=== PATIENT | male | born 1980 | race Caucasian/White ===

== ENCOUNTER 2022-11-10 11:37 | Emergency (ER) | payer OTHER, SELFPAY ==
[2022-11-10 11:58] VITALS: BP 139/98; PULSE 57; RESP 16; TEMP 36.4; O2SAT 99; BMI 30.2
--- NOTE | 2022-11-10 12:24 | ED.GENADUL1 ---
HPI - General Adult General Chief complaint: Abdominal Pain Stated complaint: abdominal pain Time Seen by Provider: 11/10/22 12:23 Source: patient Mode of arrival: walk-in History of Present Illness HPI narrative: Patient is a 42-year-old male who is presenting to the ER complaint of left lower quadrant discomfort, nausea. Patient does have a history of diverticulitis. Patient has had diverticulitis twice previously.Patient is only had one CAT scan in the past. Patient works in the railroad. Patient has had no heavy lifting, twisting or turning recently. Patient has no fever or chills. is at bedside. Patient has had diarrhea since Wednesday, patient does not believe he is constipated. He did have diarrhea last week as well, he took one Imodium last week. No chest pain or shortness of breath. Patient has no fever or chills. No difficulty urinating. Patient with history kidney stones. Patient had left over Cipro and Flagyl from his last diverticulitis, he's been taking that since Wednesday with no relief. The 1st 2 times patient had diverticulitis, he take the medication for for 5 days, infection would improve and he did not finish the antibiotics either time. Patient has no other acute complaints at this time . All systems are negative except as noted/marked. All systems reviewed and otherwise negative. . Nurses note and vital signs reviewed and patient is not hypoxic. General: The patient appears well and in no apparent distress. Patient is resting comfortably on cart. Patient is not toxic, lethargic, or listless Skin: Warm, dry, no pallor noted. There is no rash noted. No petechiae, purpura. Head: Normocephalic, atraumatic Eye: Normal conjunctiva, no drainage, EOMI. PERRL Ears, Nose, Mouth, and Throat: oral mucosa is moist. Nares patent. Mouth without vesicles. Cardiovascular: Regular Rate and Rhythm, no murmur, gallop, rub Respiratory: Patient is in no distress, no accessory muscle use, lungs are clear to auscultation, no wheezing, rales or rhonchi Back: non-tender, no CVA tenderness bilaterally to percussion. No CT LS midline pain GI: soft, obese, . Moderate left lower quadrant tenderness to palpation, no bilateral flank pain, no bilateral CVA tenderness. No periumbilical tenderness to palpation. No right upper or right lower quadrant tenderness palpation, no peritoneal signs, otherwise no tenderness to palpation, no masses appreciated. No rebound, guarding, or rigidity noted. No flank pain bilateral, No distention Musculoskeletal: Patient has full range of motion of all of the extremities, no motor, sensory, or focal neurological deficits Neurological: A&O x3, normal speech Psychiatric: Cooperative Related Data Home Medications Medication Instructions Recorded Confirmed alprazolam 1 mg tablet 1 mg PO DAILY PRN anxiety 11/10/22 11/10/22 atorvastatin 40 mg tablet 40 mg PO DAILY 11/10/22 11/10/22 ezetimibe 10 mg tablet 10 mg PO DAILY 11/10/22 11/10/22 losartan 100 mg tablet 100 mg PO DAILY 11/10/22 11/10/22 metoprolol tartrate 25 mg tablet 12.5 mg PO BID 11/10/22 11/10/22 omeprazole 40 mg capsule,delayed 40 mg PO DAILY 11/10/22 11/10/22 release Previous Rx's Medication Instructions Recorded ciprofloxacin HCl 500 mg tablet 500 mg PO Q12H 10 days #10 tabs 11/10/22 dicyclomine 20 mg tablet 20 mg PO TID PRN abdominal pain #7 11/10/22 tabs hydrocodone 5 mg-acetaminophen 325 1 tab PO Q4H PRN pain #10 tabs 11/10/22 mg tablet metronidazole 500 mg tablet 500 mg PO TID 10 days #15 tabs 11/10/22 ondansetron 4 mg disintegrating 4 mg PO Q4H PRN nausea and 11/10/22 tablet vomiting 3 days #6 tabs Allergies Allergy/AdvReac Type Severity Reaction Status Date / Time No Known Drug Allergies Allergy Verified 11/10/22 11:58 [facility] Medical History (Updated 11/10/22 @ 15:30 by Avinash Tijerina MD) Exam Constitutional Vital Signs, click to edit/add: Last Vital Signs Temp 97.5 F L 11/10/22 11:58 Pulse 57 L 11/10/22 11:58 Resp 16 11/10/22 11:58 BP 139/98 H 11/10/22 11:58 Pulse Ox 99 11/10/22 11:58 O2 Del Method Room Air 11/10/22 11:58 Course Vital Signs Vital signs: Vital Signs Temperature 97.5 F L 11/10/22 11:58 Pulse Rate 57 L 11/10/22 11:58 Respiratory Rate 16 11/10/22 11:58 Blood Pressure 139/98 H 11/10/22 11:58 Pulse Oximetry 99 11/10/22 11:58 Oxygen Delivery Method Room Air 11/10/22 11:58 Temperature 97.5 F L 11/10/22 11:58 Pulse Rate 57 L 11/10/22 11:58 Respiratory Rate 16 11/10/22 11:58 Blood Pressure 139/98 H 11/10/22 11:58 Pulse Oximetry 99 11/10/22 11:58 Oxygen Delivery Method Room Air 11/10/22 11:58 Medical Decision Making MDM Narrative Medical decision making narrative: Patient initially had IV laboratory testing, labwork was hemolyzed, there are delay in patient's labs coming back. Patient has only had one CT scan and pelvis previously. Patient will have CT abdomen and pelvis done because patient states this feels different than it did the last 2 times it diverticulitis. He states the pain is more waiting to the umbilicus, last 2 times it was only in the left lower quadrant. Patient states he's had diarrhea for the past 3 days, education on constipation that usually includes diarrhea was discussed at bedside. Patient does not believe is constipated. Patient CT shows acute non-complicated diverticulitis. Patient has multiple small kidney stones 1?2 millimeters to bilateral kidneys, education was done with patient and at bedside and possible future kidney stones. Patient has already taken 3 days of Cipro and Flagyl at home from a leftover prescription. Patient has 2 additional days of Cipro and Flagyl at home. Patient was given another 5 days of Cipro and Flagyl to finished a ten-day course. Patient was given Bentyl, [place] and Zofran to help as well. Patient will follow-up with Dr. Rojas for repeat colonoscopies in the future and additional follow-up for diverticulitis care. Patient has Already had a colonoscopy 3-4 years ago. Patient will be on clear liquids for the next 2-3 days. Patient's labs shows no significant findings Lab Data Lab results reviewed: Yes I reviewed the patient's lab results Labs: Lab Results 11/10/22 11/10/22 11/10/22 Range/Units 12:10 12:15 13:01 WBC 8.0 (4.0-11.0) 10^3/uL RBC 4.29 L (4.70-6.10) 10^6/uL Hgb 13.0 L (14.0-18.0) g/dL Hct 38.8 L (42.0-54.0) % MCV 90.4 (80.0-94.0) fL MCH 30.3 (25.9-34.0) pg MCHC 33.5 (29.9-35.2) g/dL RDW 12.8 (11.0-15.0) % Plt Count 201 (150-450) 10^3/uL MPV 9.4 L (9.5-13.5) fL Neut % (Auto) 66.6 (43.0-75.0) % Lymph % (Auto) 23.8 (20.5-60.0) % [place] % (Auto) 7.1 (1.7-12.0) % Eos % (Auto) 1.9 (0.9-7.0) % Baso % (Auto) 0.4 (0.2-2.0) % Neut # (Auto) 5.3 (1.4-6.5) 10^3/uL Lymph # (Auto) 1.9 (1.2-3.8) 10^3/uL [place] # (Auto) 0.6 (0.3-0.8) 10^3/uL Eos # (Auto) 0.2 (0.0-0.7) 10^3/uL Baso # (Auto) 0.0 (0.0-0.1) 10^3/uL Abs Immat Gran (auto) 0.02 (0.00-0.03) 10^3/uL Imm/Tot Granulo (auto) 0.2 (0.0-0.5) % Sodium 139 (136-145) mmol/L Potassium 4.4 (3.5-5.1) mmol/L Chloride 104 (98-107) mmol/L Carbon Dioxide 27.4 (21.0-32.0) mmol/L Anion Gap 12.0 BUN 8.0 (7.0-18.0) mg/dL Creatinine 0.86 (0.70-1.30) mg/dL Est GFR ( Amer) >60 (>=60) Est GFR (Non-Af Amer) >60 (>=60) BUN/Creatinine Ratio 9.3 Glucose 95 (74-106) mg/dL Lactate 0.7 (0.4-2.0) mmol/L Calcium 8.9 (8.5-10.1) mg/dL Total Bilirubin 0.6 (0.2-1.0) mg/dL AST 19 (15-37) U/L ALT 38 (16-63) U/L Alkaline Phosphatase 55 (46-116) U/L Total Protein 7.3 (6.4-8.2) g/dL Albumin 3.6 (3.4-5.0) g/dL Globulin 3.7 g/dL Albumin/Globulin Ratio 1.0 Lipase 82.0 (73.0-393.0) U/L Urine Color Lt. yellow (YELLOW) Urine Clarity Clear (CLEAR) Urine pH 5.0 (5.0-9.0) Ur Specific Superior <=1.005 A (1.005-1.025) Urine Protein Negative (NEG/TRACE) mg/dL Urine Glucose (UA) Negative (NEGATIVE) mg/dL Urine Ketones Negative (NEGATIVE) mg/dL Urine Occult Blood Negative (NEGATIVE) Urine Nitrite Negative (NEGATIVE) Urine Bilirubin Negative (NEGATIVE) Urine Urobilinogen 0.2 (0.2-1.0) EU/dL Ur Leukocyte Esterase Negative (NEGATIVE) Discharge Plan Discharge Chief Complaint: Abdominal Pain Clinical Impression: Diverticulitis, Calculus of kidney, Abdominal pain Patient Disposition: Home, Self-Care Condition: Fair Prescriptions / Home Meds: New hydrocodone-acetaminophen 5-325 mg tablet 1 tab PO Q4H PRN (Reason: pain) Qty: 10 0RF dicyclomine 20 mg tablet 20 mg PO TID PRN (Reason: abdominal pain) Qty: 7 0RF ondansetron 4 mg tablet,disintegrating 4 mg PO Q4H PRN (Reason: nausea and vomiting) 3 Days Qty: 6 0RF metronidazole 500 mg tablet 500 mg PO TID 10 Days Qty: 15 0RF ciprofloxacin HCl 500 mg tablet 500 mg PO Q12H 10 Days Qty: 10 0RF No Action alprazolam 1 mg tablet 1 mg PO DAILY PRN (Reason: anxiety) atorvastatin 40 mg tablet 40 mg PO DAILY ezetimibe 10 mg tablet 10 mg PO DAILY losartan 100 mg tablet 100 mg PO DAILY metoprolol tartrate 25 mg tablet 12.5 mg PO BID omeprazole 40 mg capsule,delayed release(DR/EC) 40 mg PO DAILY Instructions: Diverticulitis (ED), Kidney Stones (ED), Abdominal Pain (ED) Additional Instructions: Education on kidney stones was done at bedside for educational purposes only. Kidney stones is not causing her pain today as discussed at bedside. Finish the 2 additional days of antibiotics that you have at home. Additional 5 days of Cipro and Flagyl have been given to as well. Use pain medication as needed. He may use Tylenol and anti-inflammatories and alternate every 4 hours as needed for pain. Do not take the pain pill with Tylenol, he could be taking too much Tylenol together. Clear liquids for the next 2-3 days. Work note has been given. Stand Alone Forms: Work/School Release, Portal Instructions Referrals: Shaikh Xavier MD [Primary Care Provider] - 1 week
[2022-11-10] MEDS: ONDANSETRON PF 4 MG/2 ML VIAL IV (12:39)
[2022-11-10] MEDS: 0.9 % SODIUM CHLORIDE 1,000 ML 1000 ML IV (12:39)
[2022-11-10 13:04] LABS: Bilirubin Urine NEGATIVE (NEGATIVE); Blood Urine NEGATIVE (NEGATIVE); Clarity Urine CLEAR (CLEAR); Color Urine LT. YELLOW (YELLOW); Glucose Urine UA NEGATIVE (NEGATIVE); Ketones Urine NEGATIVE (NEGATIVE); Leukocyte Esterase Urine NEGATIVE (NEGATIVE); Nitrite Urine NEGATIVE (NEGATIVE); Protein Urine NEGATIVE (NEG/TRACE); Specific Gravity Urine <=1.005 (1.005-1.025); Urobilinogen Urine 0.2 EU/dL (0.2-1.0)
[2022-11-10 13:06] LABS: Urine Microscopic Indicated NO
[2022-11-10 13:07] LABS: Basophils Percent Auto 0.4 % (0.2-2.0); Eosinophils Absolute Auto 0.2 10^3/uL (0.0-0.7); Eosinophils Percent Auto 1.9 % (0.9-7.0); Hematocrit 38.8 % (42.0-54.0); Immature Granulocytes Abs Auto 0.02 10^3/uL (0.00-0.03); Immature Granulocytes Pct Auto 0.2 % (0.0-0.5); Lymphocytes Absolute Auto 1.9 10^3/uL (1.2-3.8); Lymphocytes Percent Auto 23.8 % (20.5-60.0); Mean Corpuscular HGB Conc 33.5 g/dL (29.9-35.2); Mean Corpuscular Hemoglobin 30.3 pg (25.9-34.0); Mean Corpuscular Volume 90.4 fL (80.0-94.0); Mean Platelet Volume 9.4 fL (9.5-13.5); Monocytes Absolute Auto 0.6 10^3/uL (0.3-0.8); Monocytes Percent Auto 7.1 % (1.7-12.0); Neutrophils Absolute Auto 5.3 10^3/uL (1.4-6.5); Neutrophils Percent Auto 66.6 % (43.0-75.0); Platelet Count 201 10^3/uL (150-450); Red Blood Count 4.29 10^6/uL (4.70-6.10); Red Cell Distribution Width 12.8 % (11.0-15.0)
[2022-11-10 13:24] LABS: Lactate/Lactic Acid 0.7 mmol/L (0.4-2.0)
--- NOTE | 2022-11-10 13:30 | CT_ITS ---
[place] [id number] Patient Name: REA AGUAYO MRN: [facility]:[id number] date: 1980 Sex: M Assigned Patient Location: ER Current Patient Location: Accession/Order Number: [id number] Exam Date: 11/10/2022 13:52 Report Date: 11/10/2022 14:27 At the request of: HANNA LYONS Procedure: CT abdomen pelvis w con EXAM: CT abdomen pelvis w con; [id number] REASON FOR EXAM: llq pain TECHNIQUE: Helical CT images of the abdomen and pelvis were obtained after the administration of IV contrast. Multiplanar reformats were generated at the scanner. Dose reduction technique used: Automated exposure control and/or adjustment of the mA and/or kV according to patient size and/or use of iterative reconstruction technique. COMPARISON: CT abdomen/pelvis 12/05/2015 and 11/24/2015. FINDINGS: Visualized Chest: No pleural effusion or any significant pulmonary findings. Abdomen: Liver: Benign liver hemangioma in the dome of the right lobe of liver measuring 1.8 cm (series 3 image 19). Gallbladder: No calcified gallstones. No acute inflammatory changes. Bile Ducts: No significant biliary ductal dilatation. Pancreas: No mass, ductal dilatation, or inflammatory changes. Spleen: No splenomegaly or focal lesion. Adrenals: No nodules. Kidneys: -There are 5 nonobstructing 1-2 mm stones in the right kidney and 3 nonobstructing 1-2 mm stones in the left kidney. -No hydronephrosis. -No mass. Vascular: No aortic aneurysm. Lymph Nodes: No adenopathy. Abdominal Wall: No hernia or mass. Pelvis: No mass or adenopathy. Bowel/Peritoneal Cavity/Mesentery: -Moderate colonic diverticulosis with associated focal moderate pericolonic fat stranding and trace free fluid at the junction of the descending and sigmoid colon in the left lower quadrant (series 3 image 94). No gross perforation or evidence of abscess. -No bowel obstruction or significant ileus. -No acute inflammatory changes. -No free air or free fluid. Musculoskeletal: No acute fracture or suspicious osseous lesion. CT/CT abdomen pelvis w con IMPRESSION: 1. Mild acute uncomplicated diverticulitis at the junction of the descending and sigmoid colon. 2. Multiple small bilateral nonobstructing kidney stones. Electronically authenticated by: CASEY SAWYER Date: 11/10/2022 14:27
[2022-11-10 13:31] LABS: Alanine Aminotransferase 38 U/L (16-63); Albumin Level 3.6 g/dL (3.4-5.0); Alkaline Phosphatase 55 U/L (46-116); Aspartate Amino Transferase 19 U/L (15-37); BUN Creatinine Ratio 9.3; Bilirubin Total 0.6 mg/dL (0.2-1.0); Calcium 8.9 mg/dL (8.5-10.1); Carbon Dioxide 27.4 mmol/L (21.0-32.0); Chloride 104 mmol/L (98-107); Estimated GFR (African America >60 (>=60); Estimated GFR (Non-African Ame >60 (>=60); Globulin 3.7 g/dL; Glucose 95 mg/dL (74-106); Potassium 4.4 mmol/L (3.5-5.1); Sodium 139 mmol/L (136-145); Total Protein 7.3 g/dL (6.4-8.2)
[2022-11-10] MEDS: KETOROLAC TROMETHAMINE 30 MG/ML VIAL 15 MG IVP (14:00)
[2022-11-10] MEDS: LACTATED RINGER'S SOLUTION 1,000 ML 150 ML IV (14:07)
[2022-11-10] MEDS: MORPHINE SULFATE 4 MG/ML VIAL IV (14:52)
== END 2022-11-10 15:38 | disposition home or self-care (01) ==
PROVIDERS: Emergency Provider Emergency Medicine; PCP Internal Medicine
DX: K57.32 Diverticulitis of large intestine without perforation or abscess without bleeding (principal); N20.0 Calculus of kidney; R10.9 Unspecified abdominal pain; Z87.442 Personal history of urinary calculi; Z79.899 Other long term (current) drug therapy
CPT/HCPCS: 36415; 74177; 80053; 81003; 83605; 83690; 85025; 96361; 96374; 96375; 99285; Q9967

== ENCOUNTER 2024-10-05 14:27 | Outpatient (OUT) | payer OTHER, SELFPAY ==
--- OUTSIDE RECORDS SUMMARY | 2024-07-28 08:49 | XMS_ITS ---
Author Organization [facility] in [place] Address [address] [place] [address] Care Team Providers Care Continuous Miner Operator Helper Name Role Phone Reese Zhang Primary Care Provider [phone] REASON FOR VISIT lab results Encounters Encounter Location Date Provider Diagnosis [place] [address] [place] [address] 07/28/2024 Reese Zhang Plan Of Treatment No Information Progress Notes * Anita ELIZABETHOB:[birth year] (44 yo M)Acc No.[id number]:07/28/2024 Patient: Phil QUINTANAWILFRIDWalkerMani :1980 A ge:43 Y S ex:Male Address:[address] [place] [address], [phone] * true * Date: Generated for Printi ng/Faxing/eTransmitting on: 0 10/05/2024 02:30 PM EDT
--- OUTSIDE RECORDS SUMMARY | 2024-10-02 08:03 | XMS_ITS ---
Author Organization [facility] [place] Address [address] [place] [address] Care Team Providers Care Director Of Consulting Services Name Role Phone Reese Zhang Primary Care Provider [phone] REASON FOR VISIT sick Medications Medication SIG (Take, Route, Fr equency, Duration) Notes Start Date End Date Status Ondansetron HCl 4 MG 1 tablet Orally q6 hours prn nausea for 10 days 10/02/2024 Active Encounters Encounter Location Date Provider Diagnosis [place] [address] [place] [address] 10/02/2024 Reese Zhang Plan Of Treatment Medication Medication Name Sig Start Date Stop Date Notes Ondansetron HCl 4 MG 1 tablet Orally q6 hours prn nausea for 10 days 10/02/2024 Progress Notes * [place] AGUAYOsDOB:[birth year] (44 yo M)Acc No.[id number]:10/02/2024 Patient: Mani BARNARD :1980 A ge:44 Y S ex:Male Address:[address] [place] [address], [phone] * Refills Start Ondansetron HCl Tablet, 4 MG, Orally, 30, 1 tablet, q6 hours prn nausea, 10 days, Refills=0 * true * Date: Generated for Printi ng/Faxing/eTransmitting on: 0 10/05/2024 02:30 PM EDT
--- OUTSIDE RECORDS SUMMARY | 2024-10-04 11:41 | XMS_ITS ---
Author Organization [facility] [place] Address [address] [place] [address] Care Team Providers Care Vehicle Fare Collector Name Role Phone Zhang Reese Primary Care Provider REASON FOR VISIT still sick Encounters Encounter Location Date Provider Diagnosis [place] [address] [place] [address] 10/04/2024 Reese Zhang Unspecified abdomina l pain R10.9 Assessments Encounter Date Diagnosis (ICD Code) Assessment Notes Treatment Notes Treatment Clinical Notes Section Notes 10/04/2024 Unspecified abdominal pain (ICD-10 - R10.9) Plan Of Treatment Pending Test Test Name Order Date CT Abdomen and Pelvis w/contrast * 10/04 Progress Notes * [place] AGUAYOsDOB:[birth year] (44 yo M)Acc No.[id number]:10/04/2024 Patient: Mani BARNARD :1980 A ge:44 Y S ex:Male Address:[address] [place] [address], [phone] Subjective: * Chief Complaints: * S till sick * Medical History: * Surgical History: * Hospitalization/Major Diagno stic Procedure: * Medications: Objective: * Vitals: * Physical Examination: Assessment: * Assessment: 1. U nspecified abdominal pain - R10.9 (Primary) Plan: * Treatment: * Procedure Codes: * true * Date: Generated for Printi ng/Faayog/Galindo on: 0 10/05/2024 02:30 PM EDT
--- OUTSIDE RECORDS SUMMARY | 2024-10-05 14:30 | XMS_ITS | Encounter Summary ---
Author Organization [facility] Address [address] [place] [address] Care Team Providers Care Yard Specialist Name Role Phone Mikie Becerril MD Primary Care Provider [phone] Jazz Khan NP Unavailable [phone] Unallocated, Noms Provider Primary Care Provi gabriel Reason for Visit * Reason Comments Med Refill Encounter Details Date Type Department Care Team (Late st Contact Info) Description 08/20/2024 Refill [facility] [address] [place] [address] Shanel Ferguson NP [address] [place] [address] Gastroesophageal reflux disease without esophagitis; Primary hypertension ; Other hyperlipidemia Social History Tobacco Use Types Packs/Day Years Used Date Smoking Tobacco: Former Cigarettes Passive Smoke Exposure: Past Smokeless Tobacco: Former Chew Alcohol Use Standard Drinks/Week Comments Never 0 (1 standard drink = 0.6 oz pur e alcohol) Sex and Gender Information Value Date Recorded Sex Assigned at Not on file Legal Sex Male 11:51 PM EDT Gender Identity Not on file Sexual Orientation Not on file documented as of this encounter Miscellaneous Notes * Telephone Encounter - Shanel Ferguson NP - 08/20/2024 10:12 AM EDT Please contact the pt, he needs an appt with me [place] documented in this encounter Plan of Treatment Upcoming Encounters Date Type Department Care Team (Late st Contact Info) Description 01/29/2025 2:30 PM EDT Office Visit [facility] [address] [place] [address] George Guerrero MD [address] [place] [address] documented as of this encounter Visit Diagnoses Diagnosis Gastroesophageal reflux disease without esophagitis Esophageal reflux Primary hypertension Unspecified essential hypertension Other hyperlipidemia documented in this encounter Care Teams Yard Specialist Relationship Specialty Start Date End Date Mikie Becerril MD [address] [place] [place] [id number] PCP - General Family Medicine 12/30/23 08/20/24 Unallocated, Nato Frederick MD [facility] [place] [address] PCP - General Family Medicine 08/21/24 Jazz Khan NP [address] [place] [address] Nurse Practitioner Family Medicine 12/30/23 08/20/24 documented as of this encounter
--- OUTSIDE RECORDS SUMMARY | 2024-10-05 14:31 | XMS_ITS | Clinical Summary ---
Author Organization [facility] Address [address] [place] [address] Care Team Providers Care Metal Refiner Name Role Phone Unavailable Primary Care Provider Unavailabl e Social History Tobacco Use Types Packs/Day Years Used Date Smoking Tobacco: Never Assessed [place] Safety & Environment Answer Date Rec orded Fear of Current or Ex-Partner Not on file Emotionally Abused Not on file 06/03/2023 Physically Abused Not on file 06/03/2023 Sexually Abused Not on file 06/03/2023 Physically or Sexually Abused Not on file Sex and Gender Information Value Date Recorded Sex Assigned at Not on file Legal Sex Male 12:41 AM EDT Gender Identity Not on file Sexual Orientation Not on file Plan of Treatment Not on file
--- OUTSIDE RECORDS SUMMARY | 2024-10-05 14:31 | XMS_ITS | Clinical Summary ---
Author Organization [facility] Address [address] [place] [address] Care Team Providers Care Landscape Photographer Name Role Phone Unallocated, Noms Provider Primary Care Provi gabriel Allergies No known active allergies Medications ALPRAZolam (Xanax) 1 MG tabletIndications:A nxiety Take 1 tablet (1 mg) by mouth 3 (three) times a day as needed for anxiety 90 tablet 5 Active testosterone cypionate (Depo-Testosterone) 200 MG/ML injectionIndication s:Secondary male hypogonadism Inject 1 mL (200 mg) into the shoulder, thigh, or buttocks every 14 (fourteen) days 6 mL 1 5 01/20/20 25 Active omeprazole (PriLOSEC) [address] capsuleIndications: Gastroesophageal reflux disease without esophagitis Take 1 capsule (40 mg) by mouth in the morning. Take before meals. Do not crush or chew. 90 capsule 5 11/19/19 25 Active metoprolol tartrate (Lopressor) 25 MG tabletIndications:P rimary hypertension Take 0.5 tablets (12.5 mg) by mouth every 12 (twelve) hours 90 tablet 5 11/19/19 25 Active losartan (Cozaar) 100 MG tabletIndications:P rimary hypertension Take 1 tablet (100 mg) by mouth Daily 90 tablet 5 11/19/19 25 Active atorvastatin (Lipitor) 40 MG tabletIndications:O ther hyperlipidemia Take 1 tablet (40 mg) by mouth at bedtime 90 tablet 5 11/19/19 25 Active ezetimibe (Zetia) 10 MG tabletIndications:O ther hyperlipidemia Take 1 tablet (10 mg) by mouth in the morning. 90 tablet 5 11/19/19 25 Active Active Problems Problem Noted Date Diagnosed Date Fatigue 02/15/2024 Post-viral cough syndrome 06/01/2023 Assessment & Plan (06/01/2023 10:59 PM EST): Patient came here for mild throat discomfort, nasal congestion ever since he recovered from URTI about a month ago. Patient was worried that he has a white patch over her hard plate. No white patch/discoloration noted. Mild oropharyngeal hyperemia noted that is likely from chronic rhinitis. Recommended conservative measures. Use a humidifier at night. Avoid sudden/severe changes in temperature. Reach out to office if any concerns or questions. Primary hypertension 03/30/2023 Assessment & Plan (02/15/2024 4:28 PM EST): Currently taking Losartan 100mg Metoprolol 25mg Checks BP at home; Averages are 130's/80's Denies orthostatic changes, dizziness, cough, shortness of breath, swelling in extremities. Continue current regimen. Given BP log, advised pt to record BP and bring log back with them to next visit. Assessment & Plan (03/30/2023 9:44 AM EST): BP well controlled. On average less than 130/90. Tolerating Anti hypertensive w/o adverse effects. Denies lightheadedness, dizziness, syncope, presyncope. Patient encouraged to continue with home BP monitoring and call office if he experiences orthostatic symptoms or persistently elevated BP. On Losartan and Lopressor. C/w same. Check Labs to ensure electrolytes are not affected by Losartan. Other hyperlipidemia 03/30/2023 Assessment & Plan (02/15/2024 4:28 PM EST): Currently taking Atorvastatin 40mg Denies any myalgias. Continue current regimen. Assessment & Plan (03/30/2023 9:47 AM EST): He was started on Zetia on top of Lipitor for poorly controlled HLD Check Lipid panel, Liver enzymes. Anxiety 03/30/2023 Assessment & Plan (03/30/2023 9:46 AM EST): Patient uses Ativan as needed. He uses it once daily at night. He tried SSRI previously and did not like the way it made him feel. He reports well controlled anxiety on current regimen. I called in Ativan to be used as needed TID so that patient does not have to go to [facility] his medications every month from the pharmacy but patient was made aware and he verbalized understanding that he will use Ativan once nightly as before. Gastroesophageal reflux disease without esophagi tis 03/30/2023 Assessment & Plan (03/30/2023 9:44 AM EST): Uses Prilosec. Works well for him. C/w same. No red flags. H/O diverticulitis of colon 03/30/2023 Assessment & Plan (03/30/2023 9:46 AM EST): Recurrent episodes, usually easily manageable with bowel rest and PO abx. Patient has not had a recent flare up. He had called office for an antibiotic for it but ended up not using them since his abdominal pain resolved on its own within a day Wellness examination 03/30/2023 Assessment & Plan (02/15/2024 4:20 PM EST): I have reviewed Ht/Wt/BMI, I have reviewed recommended vaccines for patient's age, as well as all recommended screenings I have reviewed available care everywhere notes as well. I have recommended eating a balanced diet, as well as activity as chronic conditions allow It is recommended that the patient have a yearly eye exam, as well as twice a year dental exams Fu in this office for wellness on a yearly basis Diet: Eat three meals per day. Breakfast, lunch, and dinner. Avoid snacking. Avoid eating after 5/6 pm. Daily protein GOAL 35% of your intake; 30g per meal. Daily calorie GOAL 1,800-2,000 per day. Consider tracking your food intake on MyFtinessPal or LoseIt Water: Increase water intake; GOAL 64-80oz of water per day. Exercise: Increase activity. GOAL 30 minutes, 5 days per week. START SLOW. Start with 5 minutes, 5 days per week. Then increase to 10 days, 5 days per week. Continue to increase until you reach the goal. Increase steps; GOAL 10,000 steps per day. Be sure to get adequate sleep; GOAL 6-8 hours of sleep per night. Assessment & Plan (03/30/2023 9:48 AM EST): Patient here for annual wellness. No active complaints to offer. Reviewed medical, surgical and social hx. Reviewed medication list. Ordered routine labs for HTN, HLD. Too young for cancer screening. He had Colonoscopy in 2017 for an episode of Diverticulitis. 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); Fatigue, unspecified type; Abnormal laboratory test result; Loss of libido 08/04/2024 Bamboo flowsheet [facility] [address] [place] [address] George Guerrero MD 2024 Travel 07/24/2024 Orders Only [facility] [address] [place] [address] George Guerrero MD 07/10/2024 Travel 07/05/2024 Refill [facility] [address] [place] [address] Mikie Becerril MD Anxiety from Last 3 Months Family History Medical History Relation Name Comments Brain tumor Father Fibromyalgia Mother Relation Name Status Comments Father Alive Mother Alive Social History Tobacco Use Types Packs/Day Years [...] on file Sexual Orientation Not on file Last Filed Vital Signs Vital Sign Reading Time Taken Comments Blood Pressure 126/82 03/13/2024 1:52 PM EST Pulse 58 08/04/2024 10:36 AM EDT Temperature 35.8 C (96.4 F) 02/15/2024 3:58 PM EST Respiratory Rate 16 08/04/2024 10:36 AM EDT Oxygen Saturation 97% 08/04/2024 10:36 AM EDT Inhaled Oxygen Concentration - - Weight 85.3 kg (188 lb) 08/04/2024 10:36 AM EDT Height 170.2 cm (5' 7 ) 08/04/2024 10:36 AM EDT Body Mass Index 29.44 08/04/2024 10:36 AM EDT Plan of Treatment Upcoming Encounters Date Type Department Care Team (Late st Contact Info) Description 01/29/2025 2:30 PM EDT Office Visit [facility] [address] [place] [address] George Guerrero MD [address] [place] [address] Health Maintenance Due Date Last Done Comments CT Colonography 1979 Colonoscopy 1979 Colorectal Cancer Screening 1979 FIT-DNA 1979 FIT 1980 FOBT 1980 Sigmoidoscopy 1980 Influenza Vaccine (Season Ended) 2024 Procedures Procedure Name Priority Date/Time Associated Diagnosis Comments BASIC METABOLIC PANEL WITH ANION GAP Routine 07/24/2024 9:14 AM EDT FERRITIN Routine 07/24/2024 9:14 AM EDT HEMOGLOBIN Routine 07/24/2024 9:14 AM EDT PROLACTIN Routine 07/24/2024 9:14 AM EDT TESTOSTERONE, FREE Routine 07/24/2024 9:14 AM EDT PSA, TOTAL Routine 07/24/2024 9:14 AM EDT from Last 3 Months Results * BASIC METABOLIC PANEL WITH ANION GAP (07/24/2024 9:14 AM EDT) Result [facility] George Guerrero MD LAB BLOOD ORDERABLES Final Re sult * TESTOSTERONE, FREE (07/24/2024 9:14 AM EDT) George Guerrero MD LAB BLOOD ORDERABLES Final Re sult * Prolactin (07/24/2024 9:14 AM EDT) Blood Venous blood specimen / Unknown Result [facility] George Guerrero MD LAB BLOOD ORDERABLES Final Re sult * Hemoglobin (07/24/2024 9:14 AM EDT) Blood Venous blood specimen / Unknown Result [facility] George Guerrero MD LAB BLOOD ORDERABLES Final Re sult * PSA (07/24/2024 9:14 AM EDT) Blood Venous blood specimen / Unknown Result [facility] George Guerrero MD LAB BLOOD ORDERABLES Final Re sult * Ferritin (07/24/2024 9:14 AM EDT) Blood Venous blood specimen / Unknown Result [facility] George Guerrero MD LAB BLOOD ORDERABLES Final Re sult from Last 3 Months Insurance [facility] Address: [facility] [id number] [place] [address] Care Teams Landscape Photographer Relationship Specialty Start Date End Date Unallocated, Noms MD [address] [place] [address] PCP - General Family Medicine 08/21/24
--- OUTSIDE RECORDS SUMMARY | 2024-10-05 14:31 | XMS_ITS | Referral Summary ---
Author Organization [facility] Address [address] [place] [address] Care Team Providers Care Manager Epic Name Role Phone Unavailable Primary Care Provider [...]
--- OUTSIDE RECORDS SUMMARY | 2024-10-05 14:31 | XMS_ITS | Patient Health Record ---
Author Organization [facility] [place] Address [address] [place] [address] Care Team Providers Care Ferry Terminal Agent Name Role Phone Reese Zhang Primary Care Provider [phone] Allergies No Known Allergies Reason For Referral No Information Medications Medication SIG (Take, Route, Frequency, Duration) Notes Start Date End Date Status Omeprazole 40 MG 1 capsule 1/2 to 1 h our before morning meal Orally Once a day Active Xanax 1 MG 1 tablet Orally tid Active Losartan Potassium 100 MG 1 tablet Orall y Once a day Active Metoprolol Tartrate 25 MG 1/2 tablet Orally daily Active Ezetimibe 10 MG 1 tablet Orally Once a day Active Atorvastatin Calcium 40 MG 1 tablet Oral ly Once a day Active Ondansetron HCl 4 MG 1 tablet Orally q6 hours prn nausea for 10 days 10/02/2024 Active Social History Tobacco Use: Social History Observation Description Date Details (start date - stop date) Former Smoker NA - NA Tobacco Control (Standard) Question Answer Notes Tobacco use: Former smoker Problems Problem Type SNOMED Code ICD Code Onset Dates Problem Status W/U Status Risk Notes Problem 52162350 Essential (prima ry) hypertension (I10) Active confirmed Problem 752450409 Gastro-esophagea l reflux disease without esophagitis (K21.9) Active confirmed Problem 707714639 Overweight (E66.3) Active confirmed Problem 33773023 Hyperlipidemia, unspecified (E78.5) Active confirmed Problem 82848343 Generalized anxi ety disorder (F41.1) Active confirmed Problem 460801839 Diverticulosis o f large intestine without perforation or abscess without bleeding (K57.30) Active confirmed Vital Signs Heart Rate 57 /min 07/28/2024 Respiratory Rate 16 /min 07/28/2024 Blood pressure diastolic 82 mm Hg 07/28/2024 Oximetry 97 % 07/28/2024 Height 67 in 07/28/2024 Blood pressure systolic 130 mm Hg 07/28/2024 Weight 187.6 lbs 07/28/2024 BMI 29.38 kg/m2 07/28/2024 Encounters Encounter Location Date Provider Diagnosis [facility] [address] [place] [address] 07/28/[address] [facility] [address] [place] [address] 10/02/[address] [facility] [address] [place] [address] 10/04/2024 Reese Zhang Unspecified abdomina l pain R10.9 [facility] [address] [place] [address] 07/28/2024 Reese Zhang Overweight E66.3 ; B patricia mass index [BMI] 29.0-29.9, adult Z68.29 ; Encounter for general adult medical examination without abnormal findings Z00.00 ; Other acne L70.8 ; Adverse effect of glucocorticoids and synthetic analogues, initial encounter T38.0X5A ; Gastro-esophageal reflux disease without esophagitis K21.9 ; Generalized anxiety disorder F41.1 ; Essential (primary) hypertension I10 ; Hyperlipidemia, unspecified E78.5 and Diverticulosis of large intestine without perforation or abscess without bleeding K57.30 Assessments Encounter Date Diagnosis (ICD Code) Assessment Notes Treatment Notes Treatment Clinical Notes Section Notes 07/28/2024 Overweight (ICD-10 - E66.3) diet/exercise 07/28/2024 Body mass index [BMI] 29.0-29.9, adult (ICD-10 - Z68.29) 10/04/2024 Unspecified abdominal pain (ICD-10 - R10.9) 07/28/2024 Encounter for general adult medical examination without abnormal findings (ICD-10 - Z00.00) rec flu shot yearly rec dtap q10 years rtc 1 year eye and dental exams yearly labs yearly - [facility] diet/execise rec colonoscopy q10 years - UTD 07/28/2024 Other acne (ICD-10 - L70.8) rec differin gel otc d/w pt that we can do abx daily - he will hold off prob due to testosterone use 07/28/2024 Adverse effect of glucocorticoids and synthetic analogues, initial encounter (ICD-10 - T38.0X5A) see above 07/28/2024 Gastro-esophageal reflux disease without esophagitis (ICD-10 - K21.9) diet stable 07/28/2024 Generalized anxiety disorder (ICD-10 - F41.1) oarrs ok d/w pt daily med if uses xanax a lot 07/28/2024 Essential (primary) hypertension (ICD-10 - I10) bp check daily diet/execise goal <130/80 monitor bmp yearly and urine 07/28/2024 Hyperlipidemia, unspecified (ICD-10 - E78.5) labs yearly diet/exercise 07/28/2024 Diverticulosis of large intestine without perforation or abscess without bleeding (ICD-10 - K57.30) diet fiber monitor for infection - he has cipro/flagyl at home for flare ups Plan Of Treatment Pending Test Test Name Order Date CT Abdomen and Pelvis w/contrast * 10/04 Insurance Providers Payer Name Payer Address Payer Phone Subscriber Number Group Number Insured Name Patient Relationship to Insured Coverage Start Date Coverage End Date [employer] [address] [place] [phone] [id number] Mani Elizabeth Self - patient is the insured 5 Medical (General) History Medical History History ICD Code hypertension gerd hypogonadism poncho hyperlipidemia diverticulosis Surgical History Surgery Date(Month/Year) cervical fusion 11/2010 colonoscopy ~2018 +diverticulosis
--- OUTSIDE RECORDS SUMMARY | 2024-10-05 14:31 | XMS_ITS | Encounter Summary ---
Author Organization [facility] Address [address] [place] [address] Care Team Providers Care Nurse Transition Name Role Phone Mikie Becerril MD Primary Care Provider [phone] Jazz Khan NP Unavailable Unallocated, Noms Provider Primary Care Provi gabriel Encounter Details Date Type Department Care Team (Late Contact Info) Description 07/24/2024 Orders Only [facility] [address] [place] [address] George Guerrero MD [address] [place] [address] Social History Tobacco Use Types Packs/Day Years [...] on file documented as of this encounter Plan of Treatment Upcoming Encounters Date Type Department Care Team (Late Contact Info) Description 01/29/2025 2:30 PM EDT Office Visit [facility] [address] [place] [address] George Guerrero MD [address] [place] [address] documented as of this encounter Procedures Procedure Name Priority Date/Time Associated Diagnosis Comments BASIC METABOLIC PANEL WITH ANION GAP Routine 07/24/2024 9:14 AM EDT TESTOSTERONE, FREE Routine 07/24/2024 9:14 AM EDT PROLACTIN Routine 07/24/2024 9:14 AM EDT HEMOGLOBIN Routine 07/24/2024 9:14 AM EDT PSA, TOTAL Routine 07/24/2024 9:14 AM EDT FERRITIN Routine 07/24/2024 9:14 AM EDT documented in this encounter Results * BASIC METABOLIC PANEL WITH ANION GAP (07/24/2024 9:14 AM EDT) George Guerrero MD LAB BLOOD ORDERABLES Final Re sult * Ferritin (07/24/2024 9:14 AM EDT) Blood Venous blood specimen / Unknown George Guerrero MD LAB BLOOD ORDERABLES Final Re sult * Hemoglobin (07/24/2024 9:14 AM EDT) Blood Venous blood specimen / Unknown George Guerrero MD LAB BLOOD ORDERABLES Final Re sult * Prolactin (07/24/2024 9:14 AM EDT) Blood Venous blood specimen / Unknown George Guerrero MD LAB BLOOD ORDERABLES Final Re sult * TESTOSTERONE, FREE (07/24/2024 9:14 AM EDT) George Guerrero MD LAB BLOOD ORDERABLES Final Re sult * PSA (07/24/2024 9:14 AM EDT) Blood Venous blood specimen / Unknown George Guerrero MD LAB BLOOD ORDERABLES Final Re sult documented in this encounter Visit Diagnoses Not on filedocumented in this encounter Care Teams Nurse Transition Relationship Specialty Start Date End Date Mikie Becerril MD [address] [place] [address] PCP - General Family Medicine 12/30/23 08/20/24 Unallocated, Noms Provider, [address] [place] [address] PCP - General Family Medicine 08/21/24 Jazz Khan NP [address] [place] [address] Nurse Practitioner Family Medicine 12/30/23 08/20/24 documented as of this encounter
--- NOTE | 2024-10-05 14:34 | CT_ITS ---
The [address] [address] Patient Name: REA AGUAYO MRN: [id number] date: 1980 Sex: M Assigned Patient Location: CT Current Patient Location: CT Accession/Order Number: [id number] Exam Date: 10/05/2024 15:42 Report Date: 10/05/2024 15:45 At the request of: EITAN BARNETT DO Procedure: CT abdomen pelvis w con CT ABDOMEN AND PELVIS WITH INTRAVENOUS CONTRAST: CLINICAL HISTORY: Abdominal pain for one week with diarrhea COMPARISON: CT abdomen and pelvis 11/10/2022 TECHNIQUE: Spiral images were obtained through the abdomen and pelvis following the administration of intravenous contrast. This CT exam was performed using one or more following dose reduction techniques: Automated exposure control, adjustment of the mA and/or kV according to patient size, or use of iterative reconstruction technique. FINDINGS: Lung Bases: [No acute process.] Organs:Liver demonstrates a presumed hemangioma involving the right lobe. Gallbladder portal vein spleen pancreas and adrenal glands all appear unremarkable. Subcentimeter low attenuating lesion posterior cortex left kidney too small for characterization. Right kidney appears grossly unremarkable. Abdominal aorta appears normal in caliber.[ GI: Stomach is grossly unremarkable. Small bowel appears nondilated. Duodenal diverticulum. Appendix is normal. Colonic diverticulosis.[ Pelvis:[Prostate gland and urinary bladder appear unremarkable.] Peritoneum/Retroperitoneum:No free air or free fluid or lymphadenopathy. A few prominent lymph nodes are seen involving the right mesentery.[ Abd wall/Bones:Abdominal wall demonstrates no acute findings. Osseous structures demonstrate degenerative change.[ CT/CT abdomen pelvis w con IMPRESSION: No acute findings. Colonic diverticulosis. Impression dictated by: Arya Huertas Jr., D.O. 10/05/2024 3:45 PM Dictation Location: [place] [address] Electronically authenticated by: [id number] Y Date: 10/05/2024 15:45
== END 2024-10-05 14:28 | disposition home or self-care (01) ==
PROVIDERS: PCP Internal Medicine; Visit Provider Family Medicine
DX: R10.9 Unspecified abdominal pain (principal); K57.90 Diverticulosis of intestine, part unspecified, without perforation or abscess without bleeding
CPT/HCPCS: 74177; Q9967

== ENCOUNTER 2025-01-25 06:23 | Emergency (ER) | payer OTHER, SELFPAY ==
--- OUTSIDE RECORDS SUMMARY | 2011-05-06 06:05 | XMS_ITS | Continuity of Care Document ---
Author Organization [facility] Address [id number] [place] [address] Phone Care Team Providers Care Car Repair Supervisor Name Role Phone Neftaly Christensen MD Unavailable Unavailable Medications Medication Instructions Dosage Effective Dates (start - stop) Status Comments Medrol (David) 4 mg Tabs in a Dose Pack as directed on package - Active amoxicillin 875 mg Tab take 1 tablet (875MG) by oral route every 12 hours 875 MG - Active Acne Treatment 10 % Cream apply by topical route every day a thin layer to the affected area(s) 0.00 - Active Procedures Procedure Date Offic/outpt E&m [facility] 2 12 Services provided in an urgent care [facility] Offic/outpt E&m [facility] 2 Services provided in an urgent care [facility] TB Skin Test Office Visit Non Provider Advance Directives Directive Yes / No Effective Date File Name No Information Encounters Encounter Description Practice Location Reason(s) For Visit Diagnoses Date Provider Providers Copied on Encounter Offic/outpt E&m [facility] 2 [facility], [address], [place], [place], [id number], [place] tel:[phone] [facility] cold symptoms (chief complaint) Acute Sinusitis NosAcute Sinusitis Nos 2 Fermin Higginbotham. [address] [place] [address] [place], [address], [place]. tel:[phone] Offic/outpt E&m [facility], [address], [place], [place], [id number], tel:[phone] [facility] cold symptoms (chief complaint) Acute Uri NosAcute Uri Nos 2 Can Brown. [address] [place] [address] [place], [address], . tel:[phone] [facility], [address], [place], [place], [id number], tel:[phone] [facility] No Information 2 Can Brown. [address] [place] [address] [place], [address], [place]. tel:[phone] Family History Family Member Type Diagnosis Age At Onset No Information Payers Payer name Insurance type Covered constitution party ID Authoriza tion(s) No Information Social History Type Description Quantity Date Captured Comments Alcohol Use Details Caffeine Use Details Unknown Tobacco Use Status No Information Smoking Status No Information Sex Male Vital Signs Date / Time: Height Weight BMI Pulse Rate Blood Pressure Temperature Respiratory Rate Body Surface Area Head Circumference Head Circ. Percentile Wt./Ramón. Percentile BMI percentile Pulse Ox Inhaled Ox 10:22 AM 69.00 in 79.370 kg (175.00 lbs) 25.8 4 kg/m eter (2) 64 /min 138/82 mm[Hg] 97.00 F 12 /min 100 % Chief Complaint And Reason For Visit From encounter dated '05/06/2011 10:05'. cold symptoms (chief complaint). Description: Cold symptoms worse. Congested, cough, aches. No f/c/n/v/d. No cp, sob. Reason For Referral Reason For Referral No Information History Of Present Illness Encounter Date Complaint History Of Prese nt Illness No Information Functional Status Date Functional Assessmen t No Information Instructions Date Instruction Additional Infor mation No Information Assessments Type Assessment Date No Information Patient Care Teams Name Effective Dates (start - stop) Status Members No Information
--- OUTSIDE RECORDS SUMMARY | 2019-03-08 04:46 | XMS_ITS | Continuity of Care Document ---
Author Organization [facility] Address [address] [place] [address] Phone Care Team Providers Care Director Of Sales And Marketing Name Role Phone Unavailable Unavailable Unavailable Advance Directives Directive Yes / No Effective Date File Name No Information Encounters Encounter Description Practice Location Reason(s) For Visit Diagnoses Date Provider [facility], [address], [place], [place], [id number], tel:[phone] [facility] No Information 2018 No Information [facility], [address], [place], [place], [id number], tel:[phone] [facility] Contact lens exam (chief complaint) Myopia of both eyesRegular astigmatism of both eyes 2017 No Information Family History Family Member Type Diagnosis Age At Onset Maternal grandfather Problem (finding) degenerative di sorder of macula Payers Payer name Insurance type Covered republican ID Authoriza tion(s) [employer] CI [id number] Social History Type Description Quantity Date Captured Comments Sex Male Smoking Status No Information Chief Complaint And Reason For Visit No Information History Of Present Illness Encounter Date Complaint History Of Prese nt Illness Contact lens exam The 37 year ol d male presents for evaluation of Contact lens exam. Pt states he feels there maybe a change in vsn, he broke current glasses. Pt has not had a CEE in 6 yrs. He wears dailies 24/7 stretches 4-5 days. Not having any pain/irritation. Acuvue moist -2.25 OU Instructions Date Instruction Additional Infor mation Impression/Plan - 1. Discussed findings with patient, overall ocular health good.2. New glasses RX given today along with updated CL Rx. AV 1 Day moist. Advised patient to call with any sudden changes or other concerns in vision.RV in [address] Mendoza for CEE Assessments Type Assessment Date No Information
[2025-01-25 06:27] VITALS: BP 143/89; PULSE 73; TEMP 36.7; O2SAT 99; BMI 29.0
--- NOTE | 2025-01-25 06:42 | PC.NURSE ---
this patient complains of left lower abdomen pain onset a couple days ago this patient has had this abdomen before
--- OUTSIDE RECORDS SUMMARY | 2025-01-25 06:46 | XMS_ITS | Encounter Summary ---
Author Organization [facility] Address [address] [place] [address] Care Team Providers Care Logging Equipment Mechanic Name Role Phone Mikie Becerril MD Primary Care Provider [phone] Jazz Khan DIVING INSTRUCTOR Unavailable Unallocated, Noms Provider Primary Care Provi gabriel Encounter Details Date Type Department Care Team (Late Contact Info) Description 07/24/2024 Orders Only [facility] [address] [place] [address] George Guerrero MD [address] [place] [address] Social History Tobacco Use Types [...] Description 01/29/2025 2:30 PM EDT Office Visit [facility] [address] [place] [address] George Guerrero MD [address] [place] [address] documented as of this encounter Procedures Procedure [...] Blood Venous blood specimen / Unknown Result [facility] George Guerrero MD LAB BLOOD ORDERABLES Final Re sult * Prolactin (07/24/2024 9:14 AM EDT) Blood Venous blood specimen / Unknown George Guerrero MD LAB BLOOD ORDERABLES Final Re sult * TESTOSTERONE, FREE (07/24/2024 9:14 AM EDT) George Guerrero MD LAB BLOOD ORDERABLES Final Re sult * PSA (07/24/2024 9:14 AM EDT) Blood Venous blood specimen / Unknown us George Guerrero MD LAB BLOOD ORDERABLES Final Re sult documented in this encounter Visit Diagnoses Not on filedocumented in this encounter Care Teams Logging Equipment Mechanic Relationship Specialty Start Date End Date Mikie Becerril MD PCP - General Family Medicine 12/30/23 08/20/24 Unallocated, Noms MD [address] [place] [address] PCP - General Family Medicine 08/21/24 Jazz Khan NP Nurse Practitioner Family Medicine 12/30/23 08/20/24 documented as of this encounter
--- OUTSIDE RECORDS SUMMARY | 2025-01-25 06:46 | XMS_ITS | Encounter Summary ---
Author Organization [facility] Address [address] [place] [address] Care Team Providers Care Learning And Development Consultant Name Role Phone Mikie Becerril MD Primary Care Provider [phone] Jazz Khan AGRICULTURAL EXTENSION EDUCATOR Unavailable [phone] Unallocated, Noms Provider Primary Care Provi gabriel Encounter Details Date Type Department Care Team (Late st Contact Info) Description 02/22/2024 Orders Only [facility] [address] [place] [address] Jazz Khan NP Social History Tobacco Use Types Packs/Day Years [...] Description 01/29/2025 2:30 PM EDT Office Visit [facility] [address] [place] [address] George Guerrero MD [address] [place] [address] documented as of this encounter Procedures Procedure Name Priority Date/Time Associated Diagnosis Comments SCANNED LABS Routine 02/22/2024 9:58 AM EST documented in this encounter Results * SCANNED LABS (02/22/2024 9:58 AM EST) Jazz Khan AGRICULTURAL EXTENSION EDUCATOR LAB CHG PERFORMABLES Fin al Result documented in this encounter Visit Diagnoses Not on filedocumented in this encounter Care Teams Learning And Development Consultant Relationship Specialty Start Date End Date Mikie Becerril MD PCP - General Family Medicine 12/30/23 08/20/24 Unallocated, Noms MD [address] [place] [address] PCP - General Family Medicine 08/21/24 Jazz Khan NP Nurse Practitioner Family Medicine 12/30/23 08/20/24 documented as of this encounter
--- OUTSIDE RECORDS SUMMARY | 2025-01-25 06:46 | XMS_ITS | Clinical Summary ---
Author Organization [facility] Address [address] [place] [address] Care Team Providers Care Director Of Flight Operations Name Role Phone Unavailable Primary Care Provider [...]
--- OUTSIDE RECORDS SUMMARY | 2025-01-25 06:46 | XMS_ITS | Encounter Summary ---
Author Organization [facility] Address [address] [place] [address] Care Team Providers Care Product Engineer Name Role Phone Mikie Becerril MD Primary Care Provider [phone] Jazz Khan NP Unavailable [phone] Unallocated, [facility] Provider Primary Care Provi gabriel Reason for Visit * Reason Comments Med Refill Encounter Details Date Type Department Care Team (Late st Contact Info) Description 08/20/2024 Refill [facility] [address] [place] [address] Shanel Ferguson NP [address] [place] [address] Gastroesophageal reflux disease without esophagitis; Primary hypertension [...] PM EDT Office Visit [facility] [address] [place] [address] George Guerrero MD [address], [address] [place] [address] documented as of this encounter Visit Diagnoses Diagnosis Gastroesophageal reflux disease without esophagitis Esophageal reflux Primary hypertension Unspecified essential hypertension Other hyperlipidemia documented in this encounter Care Teams Product Engineer Relationship Specialty Start Date End Date Mikie Becerril MD PCP - General Family Medicine 12/30/23 08/20/24 Unallocated, Isamar Frederick MD [address] [place] [address] PCP - General Family Medicine 08/21/24 Jazz Khan NP Nurse Practitioner Family Medicine 12/30/23 08/20/24 documented as of this encounter
--- OUTSIDE RECORDS SUMMARY | 2025-01-25 06:46 | XMS_ITS | Encounter Summary ---
Author Organization [facility] Address [address] [place] [address] Care Team Providers Care Note Specialist Name Role Phone Unallocated, Noms Provider Primary Care Provi gabriel Reason for Visit * Reason Comments Med Refill Encounter Details Date Type Department Care Team (Late Contact Info) Description 12/04/2024 Refill [facility] [address] [place] [address] Shanel Ferguson, [employer] INSPECTOR [address] [place] [address] Gastroesophageal reflux disease without esophagitis; Primary hypertension [...] PM EDT Office Visit [facility] [address] [place] [address] George Guerrero MD [address] [place] [address] documented as of this encounter Visit Diagnoses Diagnosis Gastroesophageal reflux disease without esophagitis Esophageal reflux Primary hypertension Unspecified essential hypertension Other hyperlipidemia documented in this encounter Care Teams Note Specialist Relationship Specialty Start Date End Date Unallocated, Noms Provider, [address] [address] PCP - General Family Medicine 08/21/24 documented as of this encounter
--- OUTSIDE RECORDS SUMMARY | 2025-01-25 06:46 | XMS_ITS | Clinical Summary ---
Author Organization [facility] Address [address] [facility] [place] [address] Care Team Providers Care Manager Of Hospital Name Role Phone Unallocated, Noms Provider Primary [...] 14 (fourteen) days 6 mL 1 5 Active omeprazole (PriLOSEC) [address] capsuleIndications: Gastroesophageal reflux disease without esophagitis Take 1 capsule (40 mg) by mouth in the morning. Take before meals. Do not crush or chew. 90 capsule 5 Active metoprolol tartrate (Lopressor) 25 MG tabletIndications:P rimary hypertension Take 0.5 tablets (12.5 mg) by mouth every 12 (twelve) hours 90 tablet 5 Active losartan (Cozaar) 100 MG tabletIndications:P rimary hypertension Take 1 tablet (100 mg) by mouth Daily 90 tablet 5 Active atorvastatin (Lipitor) 40 MG tabletIndications:O ther hyperlipidemia Take 1 tablet (40 mg) by mouth at bedtime 90 tablet 5 Active ezetimibe (Zetia) 10 MG tabletIndications:O ther hyperlipidemia Take 1 tablet (10 mg) by mouth in the morning. 90 tablet 5 Active Active Problems Problem Noted Date Diagnosed [...] patient does not have to go to picker/puller his medications every month from the pharmacy [...] Encounters Date Type Department Care Team Description 12/04/[address] [facility] [address] [place] [address] Shanel Ferguson NP Gastroesophageal reflux disease without esophagitis; Primary hypertension ; Other hyperlipidemia from Last 3 Months Family History Medical [...] PM EDT Office Visit [facility] [address] [place] [address] George Guerrero MD [address] [place] [address] Health Maintenance Due Date Last Done Comments CT Colonography 1979 Colonoscopy 1979 Colorectal Cancer Screening 1979 FIT-DNA 1979 FIT 1979 FOBT 1979 Sigmoidoscopy 1979 Influenza Vaccine (#1) 2024 Insurance [employer] Care Teams Manager Of Hospital Relationship Specialty Start Date End Date Unallocated, Isamar Frederick MD [address] [place] [address] PCP - General Family Medicine 08/21/24
--- OUTSIDE RECORDS SUMMARY | 2025-01-25 06:47 | XMS_ITS | Patient Health Record ---
Author Organization [facility] [place] Address [address] [place] [address] Care Team Providers Care Test Data Developer Name Role Phone Zhang Reese Primary Care Provider [phone] Annie Ruth [phone] Allergies No Known Allergies Reason For Referral No Information Medications Medication SIG (Take, Route, Frequency, Duration) Notes Start Date End Date Status Omeprazole 40 MG 1 capsule 1/2 to 1 h our before morning meal Orally Once a day; Duration: 90 days Active Losartan Potassium 100 MG 1 tablet Orall y Once a day; Duration: 90 days Active Xanax 1 MG 1 tablet Orally crystal y prn; Duration: 30 days 01/22/2025 Active Ezetimibe 10 MG 1 tablet Orally Once a day; Duration: 90 days Active Metoprolol Tartrate 25 MG 1/2 tablet Ora lly daily; Duration: 90 days Active Ondansetron HCl 4 MG 1 tablet Orally q6 hours prn nausea; Duration: 10 days 10/02/2024 Active Atorvastatin Calcium 40 MG 1 tablet Oral ly Once a day; Duration: 90 days Active Social History Tobacco Use: Social History Observation Description Date Details (start date - stop date) Former Smoker NA - NA Tobacco Control (Standard) Question Answer Notes Tobacco use: Former smoker Problems Problem Type SNOMED Code ICD Code Onset Dates Problem Status W/U Status Risk Notes Problem Essential hypertension (91565940) Essential (primary) hypertension (I10) Active confirmed Problem Gastro-esophageal reflux disease without esophagitis (796950356) Gastro-esophageal reflux disease without esophagitis (K21.9) Active confirmed Problem Overweight (605894434) Overweight (E66.3) Active confirmed Problem Hyperlipidemia (58691130) Hyperlipidemia, unspecified (E78.5) Active confirmed Problem Generalized anxiety disorder (90334782) Generalized anxiety disorder (F41.1) Active confirmed Problem Diverticular disease of colon (547250083) Diverticulosis of large intestine without perforation or abscess without bleeding (K57.30) Active confirmed Vital Signs Heart Rate 57 /min 07/28/2024 Respiratory Rate 16 /min 07/28/2024 Oximetry 97 % 07/28/2024 Blood pressure diastolic 82 mm Hg 07/28/2024 Height 67 in 07/28/2024 Blood pressure systolic 130 mm Hg 07/28/2024 Weight 187.6 lbs 07/28/2024 BMI 29.38 kg/m2 07/28/2024 Encounters Encounter Location Date Provider Diagnosis [facility] [address] [place] [address] 07/28/2024 Reese Zhang [facility] [address] [place] [address] 10/02/2024 Reese Zhang [facility] [address] [place] [address] 10/04/2024 Reese Zhang Unspecified abdomina l pain R10.9 [facility] [address] [place] [address] 10/06/2024 Annie Ruth [facility] [address] [place] [address] 10/11/2024 Reese Zhang Generalized anxiety disorder F41.1 [facility] [address] [place] [address] 12/25/2024 Reese Zhang Essential (primary) hypertension I10 ; Hyperlipidemia, unspecified E78.5 and Gastro-esophageal reflux disease without esophagitis K21.9 [facility] [address] [place] [address] 01/19/2025 Reese Zhang Generalized anxiety disorder F41.1 [facility] [address] [place] [address] 01/24/2025 Reese Zhang [facility] [address] [place] [address] 07/28/2024 Reese Zhang Overweight E66.3 ; B [...] 10/04/2024 Unspecified abdominal pain (ICD-10 - R10.9) 10/11/2024 Generalized anxiety disorder (ICD-10 - F41.1) 12/25/2024 Essential (primary) hypertension (ICD-10 - I10) 01/19/2025 Generalized anxiety disorder (ICD-10 - F41.1) 12/25/2024 Hyperlipidemia, unspecified (ICD-10 - E78.5) 07/28/2024 Encounter for general adult medical examination without abnormal findings (ICD-10 - Z00.00) rec flu shot yearly rec dtap q10 years rtc 1 year eye and dental exams yearly labs yearly - get copy from [facility] diet/execise rec colonoscopy q10 years - UTD 07/28/2024 Other acne (ICD-10 - L70.8) rec differin gel otc d/w pt that we can do abx daily - he will hold off prob due to testosterone use 12/25/2024 Gastro-esophageal reflux disease without esophagitis (ICD-10 - K21.9) 07/28/2024 Adverse effect of glucocorticoids and synthetic [...] CT Abdomen and Pelvis w/contrast * 10/04 Next Appt Details Provider Name:Reese Doc beach, 01/29/2025 02:30:00 PM, [address] [place], [address], Insurance Providers Payer Name Payer Address Payer Phone Subscriber Number Group Number Insured Name Patient Relationship to Insured Coverage Start Date Coverage End Date [employer] [place] [address] [place] [id number] Mani Elizabeth Self - patient is the insured 5 Medical (General) History Medical History History ICD Code hypertension gerd hypogonadism poncho hyperlipidemia diverticulosis Surgical History Surgery Date(Month/Year) colonoscopy ~2017 +diverticulosis cervical fusion 11/2010
[2025-01-25 06:51] LABS: Hematocrit 45.5 % (42.0-54.0); Hemoglobin 15.3 g/dL (14.0-18.0); Immature Granulocytes Abs Auto 0.03 10^3/uL (0.00-0.03); Immature Granulocytes Pct Auto 0.3 % (0.0-0.5); Lymphocytes Absolute Auto 2.0 10^3/uL (1.2-3.8); Mean Corpuscular HGB Conc 33.6 g/dL (29.9-35.2); Mean Corpuscular Hemoglobin 30.5 pg (25.9-34.0); Mean Corpuscular Volume 90.8 fL (80.0-94.0); Platelet Count 227 10^3/uL (150-450); Red Blood Count 5.01 10^6/uL (4.70-6.10); White Blood Count 11.4 10^3/uL (4.0-11.0)
[2025-01-25 07:15] LABS: Alanine Aminotransferase 33 U/L (16-63); Albumin Globulin Ratio 1.0; Albumin Level 3.6 g/dL (3.4-5.0); Alkaline Phosphatase 48 U/L (46-116); Anion Gap 12.3; Aspartate Amino Transferase 16 U/L (15-37); Blood Urea Nitrogen 13.0 mg/dL (7.0-18.0); Calcium 9.3 mg/dL (8.5-10.1); Carbon Dioxide 30.3 mmol/L (21.0-32.0); Chloride 104 mmol/L (98-107); Estimated GFR (African America >60 (>=60 mL/min/1.73m^2); Estimated GFR (Non-African Ame >60 (>=60 mL/min/1.73m^2); Globulin 3.7 g/dL; Glucose 99 mg/dL (74-106); Lipase 41.0 U/L (16.0-77.0); Potassium 4.6 mmol/L (3.5-5.1); Sodium 142 mmol/L (136-145); Total Protein 7.3 g/dL (6.4-8.2)
[2025-01-25] MEDS: 0.9 % SODIUM CHLORIDE 1,000 ML 500 ML IV (07:33)
[2025-01-25] MEDS: KETOROLAC TROMETHAMINE 30 MG/ML VIAL IVP (07:33)
--- NOTE | 2025-01-25 07:33 | ED.ABDPAIN1 ---
HPI - Abdominal Pain General Chief Complaint: Abdominal Pain Stated Complaint: ABDOMINAL PAIN Time Seen by Provider: 01/25/25 06:37 Source comment: Pain in the L side of the abdomen. pt reports known hx of diverticulitis Mode of arrival: walk-in History of Present Illness HPI narrative: The patient is coming to the ER with a almost 2 days history of left lower quadrant pain. The abdominal pain with associated mild nausea but there is no vomiting and the patient just ate almost at 6:00 last night with no difficulty. Patient mentioned that he was diagnosed almost a year ago with diverticulitis had a colonoscopy done after that and it was normal The patient denies any fever chills or any other concerns he did not take anything for the pain Related Data Home Medications ?Medication ?Instructions ?Recorded ?Confirmed alprazolam 1 mg tablet 1 mg PO DAILY PRN anxiety 11/10/22 01/25/25 atorvastatin 40 mg tablet 40 mg PO DAILY 11/10/22 01/25/25 ezetimibe 10 mg tablet 10 mg PO DAILY 11/10/22 01/25/25 losartan 100 mg tablet 100 mg PO DAILY 11/10/22 01/25/25 metoprolol tartrate 25 mg tablet 12.5 mg PO BID 11/10/22 01/25/25 omeprazole 40 mg capsule,delayed 40 mg PO DAILY 11/10/22 01/25/25 release testosterone cypionate 200 mg/mL mg 01/25/25 intramuscular oil Previous Rx's ?Medication ?Instructions ?Recorded ciprofloxacin HCl 500 mg tablet 500 mg PO Q12H #14 tabs 01/25/25 metronidazole 500 mg tablet 500 mg PO Q8H 7 days #21 tabs 01/25/25 naproxen 500 mg tablet 500 mg PO Q12H PRN pain #20 tabs 01/25/25 Allergies Allergy/AdvReac Type Severity Reaction Status Date / Time No Known Drug Allergies Allergy Verified 11/10/22 11:58 Review of Systems ROS Status of ROS 10 or more systems reviewed and unremarkable except as noted in history and below [facility] Medical History (Updated 01/25/25 @ 07:34 by Rosa Manzanares MD) Anxiety ?F41.9 - Anxiety disorder, unspecified (ICD-10) Diverticulitis ?K57.92 - Diverticulitis of intestine, part unspecified, without perforation or abscess without bleeding (ICD-10) Hypertension ?I10 - Essential (primary) hypertension (ICD-10) Social History Little interest or pleasure in doing things: not at all Feeling down, depressed, or hopeless: not at all Exam Narrative Exam Narrative: Nurses notes and vital signs reviewed and patient is not hypoxic. General: Well-appearing and in no apparent distress. Skin: Warm, dry, no pallor noted. No rash. Head: Normocephalic, atraumatic. Neck: Supple, non-tender. Eye: Pupils are equal, round and EOMI. No scleral icterus. Cardiovascular: Regular Rate and Rhythm without murmur, gallop or rub. Respiratory: No accessory muscle use or respiratory distress. Lungs are clear to auscultation, no wheezing, rales or rhonchi Chest Wall: no tenderness Back: No midline thoracic or lumbar vertebral tenderness. No CVA tenderness Musculoskeletal: normal ROM, no calf or popliteal tenderness, no lower extremity edema/swelling GI: Abdomen is soft, non-distended. Left lower quadrant tenderness to Neurological: A&O x4. No cranial nerve dysfunction observed. No truncal ataxia. Moves all extremities. Sensation intact. Psychiatric: Cooperative and interactive. Normal mood and affect. Constitutional Vital Signs, click to edit/add: Last Vital Signs Temp 98.1 F 01/25/25 06:27 Pulse 73 01/25/25 06:27 Resp 14 01/25/25 06:27 BP 143/89 H 01/25/25 06:27 Pulse Ox 99 01/25/25 06:27 O2 Del Method Room Air 01/25/25 06:27 Course Vital Signs Vital signs: Vital Signs Temperature 98.1 F 01/25/25 06:27 Pulse Rate 73 01/25/25 06:27 Respiratory Rate 14 01/25/25 06:27 Blood Pressure 143/89 H 01/25/25 06:27 Pulse Oximetry 99 01/25/25 06:27 Oxygen Delivery Method Room Air 01/25/25 06:27 Temperature 98.1 F 01/25/25 06:27 Pulse Rate 73 01/25/25 06:27 Respiratory Rate 14 01/25/25 06:27 Blood Pressure 143/89 H 01/25/25 06:27 Pulse Oximetry 99 01/25/25 06:27 Oxygen Delivery Method Room Air 01/25/25 06:27 MDM - Abdominal Pain MDM Narrative Medical decision making narrative: The patient presentation is mostly secondary to a flareup of diverticulitis and he have mild symptoms His blood workup showed only a white blood cell of 11.4 with a normal chemistry Patient was provided with Toradol after which he was feeling some improvement and he was discharged home with supportive care of hydration in addition to antibiotic Cipro and Flagyl for the next 7 days with naproxen for pain instruction to come back in case of any increase in the pain or any fever or any nausea or vomiting The patient also was instructed about the importance of clear liquid diet for the next few days and then upgrading the diet to full with time With mild symptoms and the fact that the patient is not having any significant white blood cell the patient have no history of diabetes or major risk factors No suspected diverticulitis complication at the moment and my diverticulitis can be treated with the antibiotic and hydration Patient will come back in for further evaluation case no improvement within 24 to 48 hours The patient is to follow up with primary care physician in next 2-3 days or to return to the emergency department should any of the signs or symptoms worsen or new symptoms develop. The patient agrees with the following Diagnosis and Treatment plan and the patient will be discharged home. Lab Data Labs: Lab Results 01/25/25 Range/Units 06:34 WBC 11.4 H (4.0-11.0) 10^3/uL RBC 5.01 (4.70-6.10) 10^6/uL Hgb 15.3 (14.0-18.0) g/dL Hct 45.5 (42.0-54.0) % MCV 90.8 (80.0-94.0) fL MCH 30.5 (25.9-34.0) pg MCHC 33.6 (29.9-35.2) g/dL RDW 12.7 (11.0-15.0) % Plt Count 227 (150-450) 10^3/uL MPV 9.7 (9.5-13.5) fL Neut % (Auto) 73.7 (43.0-75.0) % Lymph % (Auto) 17.4 L (20.5-60.0) % Sweet [place] % (Auto) 6.8 (1.7-12.0) % Eos % (Auto) 1.5 (0.9-7.0) % Baso % (Auto) 0.3 (0.2-2.0) % Neut # (Auto) 8.4 H (1.4-6.5) 10^3/uL Lymph # (Auto) 2.0 (1.2-3.8) 10^3/uL Sweet [place] # (Auto) 0.8 (0.3-0.8) 10^3/uL Eos # (Auto) 0.2 (0.0-0.7) 10^3/uL Baso # (Auto) 0.0 (0.0-0.1) 10^3/uL Abs Immat Gran (auto) 0.03 (0.00-0.03) 10^3/uL Imm/Tot Granulo (auto) 0.3 (0.0-0.5) % Sodium 142 (136-145) mmol/L Potassium 4.6 (3.5-5.1) mmol/L Chloride 104 (98-107) mmol/L Carbon Dioxide 30.3 (21.0-32.0) mmol/L Anion Gap 12.3 BUN 13.0 (7.0-18.0) mg/dL Creatinine 0.85 (0.70-1.30) mg/dL Est GFR ( Amer) >60 (>=60 mL/min/1.73m^2) Est GFR (Non-Af Amer) >60 (>=60 mL/min/1.73m^2) BUN/Creatinine Ratio 15.3 Glucose 99 (74-106) mg/dL Calcium 9.3 (8.5-10.1) mg/dL Total Bilirubin 0.4 (0.2-1.0) mg/dL AST 16 (15-37) U/L ALT 33 (16-63) U/L Alkaline Phosphatase 48 (46-116) U/L Total Protein 7.3 (6.4-8.2) g/dL Albumin 3.6 (3.4-5.0) g/dL Globulin 3.7 g/dL Albumin/Globulin Ratio 1.0 Lipase 41.0 (16.0-77.0) U/L Discharge Plan Discharge Chief Complaint: Abdominal Pain Clinical Impression: Diverticulitis Patient Disposition: Home, Self-Care Time of Disposition Decision: 07:34 Condition: Good Mode of Transportation: Private Vehicle Prescriptions / Home Meds: New metronidazole 500 mg tablet 500 mg PO Q8H 7 Days Qty: 21 0RF ciprofloxacin HCl 500 mg tablet 500 mg PO Q12H Qty: 14 0RF naproxen 500 mg tablet 500 mg PO Q12H PRN (Reason: pain) Qty: 20 0RF No Action alprazolam 1 mg tablet 1 mg PO DAILY PRN (Reason: anxiety) atorvastatin 40 mg tablet 40 mg PO DAILY ezetimibe 10 mg tablet 10 mg PO DAILY losartan 100 mg tablet 100 mg PO DAILY metoprolol tartrate 25 mg tablet 12.5 mg PO BID omeprazole 40 mg capsule,delayed release(DR/EC) 40 mg PO DAILY testosterone cypionate 200 mg/mL oil Print Language: Trinidadian Instructions: Diverticulitis (DC), Clear Liquid Diet (ED), Full Liquid Diet (DC) Additional Instructions: Please make sure you follow-up with your primary care within a week for further evaluation Please come back to the ER in case of any vomiting any increasing in pain and any fever Referrals: EITAN BARNETT DO [Primary Care Provider, Family Practice] - 1 week Discharge Date/Time: 01/25/25 08:13
[2025-01-25] MEDS: METRONIDAZOLE 250 MG TABLET 500 MG PO (08:06)
[2025-01-25] MEDS: CIPROFLOXACIN HCL 500 MG TABLET PO (08:06)
== END 2025-01-25 08:13 | disposition home or self-care (01) ==
PROVIDERS: Emergency Medicine; Emergency Provider Emergency Medicine; PCP Family Medicine
DX: K57.92 Diverticulitis of intestine, part unspecified, without perforation or abscess without bleeding (principal)
CPT/HCPCS: 36415; 80053; 81001; 83690; 85025; 96374; 96375; 99284; J1885; J2405